=== PATIENT | male | born 1955 | race Caucasian/White ===

== ENCOUNTER 2019-03-01 21:21 | Emergency (ER) | payer OTHER ==
[~2019-03-01] VITALS: Ht 188 cm; Wt 90.7 kg
[~2019-03-01 21:21] MED LIST: AZIT500 PO; DIAZ5 PO; DOCU100 PO; ERGO50000 PO; GAVILYTE-N SO4000 ML PO; LAVAP17G PO; Lisinopril2.5 MG; METO25; ONDA4ODT; Omeprazole20 M1; PROCODE120; PROCTOSOL-HC30 GM EXT; SUMA25 PO; VITAMIN D31000 UNIT PO
== END 2019-03-02 02:48 | disposition home or self-care (01) ==
LOC: ER 21:21
DX: R13.10 Dysphagia, unspecified (principal); Z79.899 Other long term (current) drug therapy
CPT/HCPCS: 99283; J3360; J7030